=== PATIENT | female | born 1970 | race Caucasian/White ===

== ENCOUNTER 2017-03-05 18:58 | Emergency (ER) ==
[2017-03-05] MEDS ORDERED: TETANUS DIPHTHERIA TOXOIDS IM ONE (19:10)
[2017-03-05] MEDS ORDERED: DOXYCYCLINE HYCLATE PO STA (19:11)
--- NOTE | 2017-03-05 19:14 | ED.PDOC ---
General ED Provider: Dr. SHANE LEARY-ER Chief Complaint: Bite Stated Complaint: i wsa driving down the road and i felt a pimple on my leg and i scratched it Time Seen by Physician: 19:12 Mode of Arrival: Walk-In Information Source: Patient, Family Exam Limitations: No limitations Primary Care Provider: YURY BOYD Nursing and Triage Documentation Reviewed and Agree: Yes Skin Complaint Exam - Skin/Soft Tissue Complaint/Exam Onset/Duration: unknown Symptoms Are: Still present Timing: Constant Initial Severity: Mild Current Severity: Mild Location: left lower leg Character: Reports: Redness, Swelling, Raised, Painful Aggravating: Reports: None Alleviating: Reports: None Associated Signs and Symptoms: Reports: Tenderness. Denies: Fever, Chills, Itching, Drainage, Bruising, Red streaks, Joint swelling Related History: Reports: Insect bite/sting (>>?) Related Surgical History: Reports: None Recent Exposure to Others w/Similar Symptoms: No Skin Findings: Present: Erythema, Induration, Pustules Joint Tenderness Present: No Differential Diagnoses: Cellulitis Review of Systems - Review Of Systems Constitutional: Reports: No symptoms Eyes: Reports: No symptoms Ears, Nose, Mouth, Throat: Reports: No symptoms Respiratory: Reports: No symptoms Cardiac: Reports: No symptoms GI: Reports: No symptoms : Reports: No symptoms Musculoskeletal: Reports: No symptoms Skin: Reports: Lumps, Rash Neurological: Reports: No symptoms Endocrine: Reports: No symptoms Hematologic/Lymphatic: Reports: No symptoms All Other Systems: Reviewed and Negative Past Medical History - Past Medical History Previously Healthy: No Endocrine: Reports: Unknown Cardiovascular: Reports: Unknown Respiratory: Reports: Unknown Hematological: Reports: Unknown Gastrointestinal: Reports: Unknown Genitourinary: Reports: Unknown Neuro/Psych: Reports: Unknown Musculoskeletal: Reports: Unknown Cancer: Reports: Unknown Last Menstrual Period: 2 DAYS AGO - Surgical History General Surgical History: Reports: Unknown - Family History Family History: Reports: Unknown - Social History Smoking Status: Never smoker Hx Substance Use: No Alcohol Screening: Occasionally - Immunizations Tetanus Shot up to Date: Yes Physical Exam - Physical Exam Appearance: Well-appearing, No pain distress, Well-nourished Eyes: EUSEBIA, EOMI, Conjunctiva clear ENT: Ears normal, Nose normal, Oropharynx normal Neck: Supple Respiratory: Airway patent Cardiovascular: RRR, Pulses normal, No rub, No murmur GI/: Soft, Nontender, No masses, Bowel sounds normal, No Organomegaly Musculoskeletal: Normal strength, ROM intact, No edema, No calf tenderness Skin: Warm (exam does confirm an area of 3cm lower extremity of erythema and warmth--central area of excoriation--no necrosis noted) Neurological: Sensation intact Psychiatric: Affect appropriate, Mood appropriate Critical Care Note - Critical Care Note Total Time (mins): 0 Course - Course Orders, Labs, Meds: Orders Category Date Time Status Sulfamethoxazole/Trimethoprim [Bactrim Susp 200/40 mg/5 MEDS 03/05/17 19:21 Discontinued ml] 160 mg .ROUTE .STK-MED ONE Sulfamethoxazole/Trimethoprim [Bactrim Susp 200/40 mg/5 MEDS 03/05/17 19:24 Discontinued ml] 800 mg PO ONCE STA Tetanus, Diphtheria Tox,Adult [Tetanus Diphtheria MEDS 03/05/17 19:10 Discontinued Toxoids] 0.5 ml IM .ONCE ONE Medications Discontinued Medications Generic Name Dose Route Start Last Admin Trade Name Freq PRN Reason Stop Dose Admin Tetanus/Diphtheria Toxoids 0.5 ml 03/05/17 19:10 Tetanus Diphtheria Toxoids IM 03/05/17 19:11 .ONCE ONE Trimethoprim/Sulfamethoxazole 800 mg 03/05/17 19:24 Bactrim Susp 200/40 Mg/5 Ml PO 03/05/17 19:25 ONCE STA Vital Signs: Temp Pulse Resp BP Pulse Ox 03/05/17 19:00 98.4 F 97 H 18 171/98 H 95 Departure - Departure Time of Disposition: 19:15 Disposition: HOME SELF-CARE Discharge Problem: Cellulitis Qualifiers: Site of cellulitis: extremity Site of cellulitis of extremity: lower extremity Laterality: left Qualified Code(s): L03.116 - Cellulitis of left lower limb Instructions: Cellulitis (ED) Condition: Good Pt referred to PMD for follow-up: Yes Additional Instructions: bactrim susp 800/160 bid x 7 days--keep area clean and dry with soap and water wash--f/u wtih pcp in 2 days Allergies/Adverse Reactions: Allergies codeine Adverse Reaction (Verified 03/05/17 19:06) "PASSES OUT" Home Medications: Ambulatory Orders 1 [No Reported Medications] 03/31/13 Disposition Discussed With: Patient, Family
[2017-03-05 19:16] VITALS: BP 171/98; TEMP 98.4; BMI 26.6
[2017-03-05] MEDS ORDERED: BACTRIM ONE (19:21)
[2017-03-05] MEDS ORDERED: BACTRIM PO STA (19:24)
== END 2017-03-05 19:58 | disposition home or self-care (01) ==
LOC: ED 18:58
DX: L03.116 Cellulitis of left lower limb (principal)
CPT/HCPCS: 90471; 90714; 99282